=== PATIENT | male | born 1970 | race Native Hawaiian/Other Pacific Islander ===

== ENCOUNTER 2017-07-05 05:56 | Outpatient (CLI) | payer OTHER ==
[2017-07-05 06:58] LABS: POTASSIUM 3.6 mmol/L (3.6-5.2)
== END 2017-07-05 19:15 | disposition home or self-care (01) ==
LOC: LABW 05:56
DX: Z79.899 Other long term (current) drug therapy (principal); Z51.81 Encounter for therapeutic drug level monitoring
CPT/HCPCS: 36415; 80053; 80061; 84443

== ENCOUNTER 2019-09-27 14:45 | Emergency (ER) | payer OTHER ==
[~2019-09-27] VITALS: Ht 182.9 cm; Wt 82.6 kg
[2019-09-27 14:52] VITALS: TEMP 96.8
[2019-09-27 16:45] VITALS: BP 136/99
== END 2019-09-27 17:03 | disposition home or self-care (01) ==
LOC: ED 14:45
DX: M25.511 Pain in right shoulder (principal)
CPT/HCPCS: 82550; 84484; 93005; 99283

== ENCOUNTER 2020-08-22 23:44 | Emergency (ER) | payer OTHER ==
[~2020-08-22] VITALS: Ht 182.9 cm; Wt 82.6 kg
[2020-08-22 23:50] VITALS: BP 168/88; TEMP 98.7
[2020-08-23 01:26] LABS: PLATELET COUNT 258 K/uL (142-355)
[2020-08-23 01:34] LABS: POTASSIUM 3.5 mmol/L (3.6-5.2)
== END 2020-08-23 02:12 | disposition home or self-care (01) ==
LOC: ED 23:44
PROVIDERS: Hospitalist
DX: R10.84 Generalized abdominal pain (principal); K59.09 Other constipation; E87.6 Hypokalemia
CPT/HCPCS: 36415; 80053; 80320; 83690; 85027; 96375; 99284; J1885; J2405

== ENCOUNTER 2021-12-05 14:26 | Emergency (ER) | payer OTHER ==
[~2021-12-05] VITALS: Ht 182.9 cm; Wt 82.6 kg
[2021-12-05 14:26] VITALS: TEMP 98.1
[2021-12-05 19:30] VITALS: BP 132/89
== END 2021-12-05 20:12 | disposition home or self-care (01) ==
LOC: ED 14:26
DX: F20.89 Other schizophrenia (principal)
CPT/HCPCS: 99285; J1200; J1630

== ENCOUNTER 2022-01-07 00:17 | Emergency (ER) | payer OTHER ==
[~2022-01-07] VITALS: Ht 182.9 cm; Wt 82.6 kg
[2022-01-07 00:20] VITALS: BP 113/80; TEMP 98.9
== END 2022-01-07 00:58 | disposition home or self-care (01) ==
LOC: ED 00:17
PROC: 0HQ0XZZ Repair Scalp Skin, External Approach (ICD-10-PCS; principal; 2022-01-07)
DX: S01.01XA Laceration without foreign body of scalp, initial encounter (principal); W01.198A Fall on same level from slipping, tripping and stumbling with subsequent striking against other object, initial encounter; Y92.89 Other specified places as the place of occurrence of the external cause
CPT/HCPCS: 99282